=== PATIENT | female | born 1985 | race Hispanic/Latino ===

== ENCOUNTER 2018-01-20 13:09 | Emergency (ER) | payer OTHER ==
[~2018-01-20] VITALS: Ht 154.9 cm; Wt 69.6 kg
[~2018-01-20 13:09] MED LIST: LORTAB 5-325 M1 EACH PO; MIRALAX17 GM PO; PHENERGAN25 MG PR; PRILOSEC20 MG PO; ZOFRAN ODT4 MG PO
[2018-01-20 14:02] LABS: HEMATOCRIT 41.1 % (36.0-46.0); HEMOGLOBIN 13.9 G/DL (11.9-15.5); MCHC 33.8 G/DL (30.0-36.0); MCV 91.5 FL (83-99); PLATELET COUNT 328 K/uL (156-360); RBC DIS.WIDTH-CV 12.4 % (11.8-14.6); RBC DIS.WIDTH-SD 41.6 % (39-53); RED BLOOD COUNT 4.49 M/uL (3.80-5.20); WHITE BLOOD COUNT 9.3 K/uL (4.1-10.2)
[2018-01-20 14:13] LABS: ALBUMIN 4.3 g/dL (3.2-4.8); CHLORIDE 102 mEq/L (99-109); POTASSIUM 3.7 mEq/L (3.7-5.4); SODIUM 139 mEq/L (136-147)
[2018-01-20 14:15] LABS: GLUCOSE 126 mg/dL (70-99)
[2018-01-20 14:16] LABS: TOTAL PROTEIN 7.7 g/dL (6.4-8.3)
[2018-01-20 14:17] LABS: TOTAL BILIRUBIN 0.7 mg/dL (0.0-1.0)
[2018-01-20 14:19] LABS: ALKALINE PHOSPHATASE 53 IU/L (3-129); CREATININE 0.8 mg/dL (0.6-1.3); GFR ESTIMATE (CALCULATED) > 59 mL/min/
[2018-01-20 14:20] LABS: UREA NITROGEN (BUN) 12 mg/dL (9-23)
[2018-01-20 14:21] LABS: AST (GOT) 16 IU/L (2-34)
[2018-01-20 14:22] LABS: ALT (GPT) 22 IU/L (3-49)
[2018-01-20 14:28] LABS: QUANTITATIVE HCG < 4.0 MIU/ML
[2018-01-20 15:29] LABS: AMYLASE 59 IU/L (1-118)
[2018-01-20 15:37] LABS: LIPASE 22 U/L (1.0-51.0)
[2018-01-20 15:45] LABS: APPEARANCE CLOUDY ((CLEAR)); BILIRUBIN NEGATIVE; BLOOD NEGATIVE; COLOR YELLOW ((YELLOW)); GLUCOSE (STRIP) NEGATIVE; KETONES NEGATIVE; LEUKOCYTES TRACE; NITRITE NEGATIVE; PROTEIN (STRIP) 100; SPECIFIC GRAVITY 1.029 (1.000-1.030)
[2018-01-20 15:51] LABS: BACTERIA NONE SEEN /HPF; EPITHELIAL CELLS 3+ /HPF; MUCUS 3+ /LPF; RED BLOOD CELLS 0-5 /HPF (0-5); UCUL ADDED? NO; WHITE BLOOD CELLS 0-5 /HPF (0-5)
[2018-01-20] MEDS ORDERED: ZANTAC150 MG PO (17:06)
[2018-01-20] MEDS ORDERED: CARAFATE1 GM PO (17:06)
[2018-01-20] MEDS ORDERED: ZOFRAN ODT4 MG PO (17:13)
[2018-01-20 17:32] VITALS: BP 122/84
== END 2018-01-20 17:33 | disposition home or self-care (01) ==
LOC: EME 13:09
DX: R10.11 Right upper quadrant pain (principal); R10.13 Epigastric pain; F17.200 Nicotine dependence, unspecified, uncomplicated; Z88.1 Allergy status to other antibiotic agents; Z91.040 Latex allergy status
CPT/HCPCS: 76705; 80053; 81003; 82150; 83690; 84702; 85027; 93005; 99281; 99284; J1885

== ENCOUNTER 2018-01-22 21:26 | Emergency (ER) | payer OTHER ==
[~2018-01-22] VITALS: Ht 154.9 cm; Wt 71.7 kg
[~2018-01-22 21:26] MED LIST changes: +CARAFATE1 GM PO; +ZANTAC150 MG PO
[2018-01-22 22:46] LABS: HEMATOCRIT 36.7 % (36.0-46.0); HEMOGLOBIN 12.5 G/DL (11.9-15.5); MCH 31.3 PG (29.0-34.0); MCHC 34.1 G/DL (30.0-36.0); MCV 91.8 FL (83-99); PLATELET COUNT 275 K/uL (156-360); RBC DIS.WIDTH-CV 12.1 % (11.8-14.6); RBC DIS.WIDTH-SD 40.9 % (39-53); WHITE BLOOD COUNT 9.9 K/uL (4.1-10.2)
[2018-01-22 22:55] LABS: CHLORIDE 104 mEq/L (99-109); POTASSIUM 3.7 mEq/L (3.7-5.4); SODIUM 136 mEq/L (136-147)
[2018-01-22 22:57] LABS: GLUCOSE 106 mg/dL (70-99); TOTAL PROTEIN 6.9 g/dL (6.4-8.3)
[2018-01-22 23:00] LABS: TOTAL BILIRUBIN 0.4 mg/dL (0.0-1.0)
[2018-01-22 23:01] LABS: ALKALINE PHOSPHATASE 45 IU/L (3-129); CREATININE 0.8 mg/dL (0.6-1.3); GFR ESTIMATE (CALCULATED) > 59 mL/min/
[2018-01-22 23:02] LABS: UREA NITROGEN (BUN) 11 mg/dL (9-23)
[2018-01-22 23:03] LABS: AST (GOT) 19 IU/L (2-34)
[2018-01-22 23:04] LABS: ALT (GPT) 24 IU/L (3-49)
[2018-01-22] MEDS ORDERED: BENTYL20 MG PO (23:14)
[2018-01-23 00:08] VITALS: BP 126/50
== END 2018-01-23 00:09 | disposition home or self-care (01) ==
LOC: EME 21:26 → RME 21:26
PROVIDERS: Nurse Practitioner Family
DX: R10.11 Right upper quadrant pain (principal); K21.9 Gastro-esophageal reflux disease without esophagitis; F17.200 Nicotine dependence, unspecified, uncomplicated; Z88.1 Allergy status to other antibiotic agents; Z91.040 Latex allergy status
CPT/HCPCS: 80053; 85027; 99281; 99284; J0500